=== PATIENT | male | born 1975 | race Caucasian/White ===

== ENCOUNTER 2018-10-23 21:17 | Emergency (ER) | payer MEDICAID, OTHER ==
[2018-10-23] MEDS ORDERED: LORazepam 2 MG/ML INJ IM PRN (21:37)
[2018-10-23] MEDS ORDERED: LORazepam 2 MG/ML INJ ONE (21:38)
[2018-10-23] MEDS ORDERED: LORazepam 2 MG/ML INJ IM ONE (22:17)
--- NOTE | 2018-10-23 22:23 | EDPHY ---
General - History Smoking Status: Current some day smoker Time Seen by Provider: 10/23/18 21:25 Narrative: CLINICAL IMPRESSION: Alcohol intoxication, Ground level fall ASSESSMENT/PLAN: 43 yo male presents to the ED in 4 point restraints after he was picked up by police outside of a bar in [place], became aggressive and had a ground level fall to the pavement allegedly striking the back of his head according to police. Patient is heavily intoxicated denying pain, headache, neck pain, back pain and any other injury. He is screaming profanity at staff members, acting aggressively, and despite 2 mg IM Ativan, ultimately required 10 mg IM Zyprexa to calm. He was initially refusing CT scan. Given his intoxicated state and reported head injury patient will require CT head and cervical spine before discharged on in [facility] hold which was placed by police. He was signed out to Dr. Fung at 12:00am. Pending CT results and re-evaluation. DIFFERENTIAL DX: Differential diagnosis for this patient includes but not limited to alcohol intoxication, alcohol abuse, alcohol withdrawal, other substance abuse or withdrawal, toxidrome or medication overdose, CVA, head trauma, hyponatremia, hypoglycemia or other electrolyte abnormality. ED PROCEDURES: See lab and/or imaging results below ED COURSE: Patient seen and assessed by myself at EMS arrival. He arrives in 4 point restraints, combative, yelling profanities at staff and police officers, [facility] placed by police officers. Patient is obviously intoxicated. Police report to me that they witness the patient falling from standing height backwards and struck his head on the pavement. Despite 2 mg IM Ativan, patient continues to be very aggressive, verbally abusing staff, and continuing to review CT scan. He was then given 10 mg IM Zyprexa. CHIEF COMPLAINT: Intoxicated, ground level fall HPI: 43-year-old male presents to the emergency department by EMS in 4 point restraints with police after apparently becoming combative and aggressive towards police outside of a bar in [place]. Patient is obviously intoxicated. According to police, patient was attempting to step up onto a curb when he fell backwards and struck his head on the pavement. There was no loss of consciousness. He has abrasions to the right knee. He is reporting no headache, neck pain or back pain. He is screaming profanities at staff and police, demanding to speak to his clinical data specialist, and reporting that we are kidnapping him. He denies doing any drugs but does admit to smoking marijuana. He does not believe he is intoxicated. PAST MEDICAL HISTORY: None reported See nurse/triage notes for additional history if applicable Pertinent Past Surgical History: None reported Family History: None reported Social History: Intoxicated REVIEW OF SYSTEMS: Unable to obtain due to acute alcohol intoxication. Patient is denying headache , neck pain and back pain. He is not a reliable historian at this point. PHYSICAL EXAM: General Appearance: [Alert, in 4 point restraints, agitated, yelling profanities at staff, refusing ED evaluation and scans, smells heavily of alcohol, HEENT: TMs are clear bilaterally no perforation or FB, no injection, no evidence of serous or mucopurulent otitis. Oropharynx clear is no erythema or exudates, no tonsillar hypertrophy or asymmetry. Dentition without abnormality. Eyes: PERRLA, no acute vision change, nystagmus, swelling, discharge, pain or photosensitivity. Conjunctiva pink, no pallor or injection Neck: Supple, nontender, no lymphadenopathy, no midline pain, FROM, no meningismus. Respiratory: There are no retractions, lungs are clear to auscultation. Cardiac: Regular rate and rhythm, no murmurs or gallops. Gastrointestinal: Abdomen is soft, nontender, bowel sounds normal, no masses/ hernia, no rigidity, guarding or focal peritoneal findings. Neurological: Alert and oriented x 3, CN 2-12 grossly intact, normal gait no ataxia, DTR's intact, normal sensation and strength Skin: Warm, dry, no rashes, no nodules on palpation. Musculoskeletal: Extremities are symmetrical, full range of motion, no tenderness, deformity, swelling, or erythema. Psychiatric: Patient is oriented X 3, there is no agitation. MEDICAL DECISION MAKING: Patient was seen independently. Secondary supervising physician at time of evaluation was Dr. Moya, Dr. Fung . Diagnosis: Alcohol intoxication, ground level fall. New, requires workup Summary: See Assessment and Plan for summary of ED visit Independent visualization of images, tracing, or specimens: Yes / No. Discussed patient with another provider: Dr. Fung, Dr. Moya Patient Progress: Stable at time of sign-out. (Rey Thompson) Medical Decision Makin: Patient signed over to me at midnight. I went saw the patient the patient was in 4 point restraints he is now be taking out of them as he is sedated. He came in acutely agitated and intoxicated. Still pending a CT scan of his head and neck after he fell earlier tonight. He is highly intoxicated with alcohol. He was acutely agitated received medications earlier this evening. Is noted she is tachycardic here. Plan will be for IV establishment IV fluid bolus, basic labs, alcohol level, CT scan head and neck. 0137: CT scan head without contrast and CT cervical spine without contrast faxed me by direct Radiology at 1:09 a.m. No acute intracranial abnormality no cranial or cervical fracture identified. 0300: Patient resting comfortably. Received IV fluids. His alcohol level was 251. CT scans negative. 0633: Is now sober. Ambulatory. Stable gait. Clinically sober and safe for discharge from the emergency room. Denies any complaints. States " I just drank too many drinks last night" (Pilo Fung) I did not see this patient while he was in the emergency department. However his care was discussed with the PA while the patient was in the department. I agree with treatment plan and management (Jose Cruz Moya) - Diagnostics Imaging Results: Imaging Impressions Cervical Spine CT 10/23/18 22:01 Impression: Negative noncontrast CT of the head with no intracranial posttraumatic sequela identified. CT Cervical Spine Without Contrast History: Trauma. Technique: Multislice helical CT through the cervical spine without contrast from the skull base to T1. Soft tissue and bone evaluation is performed. Sagittal and coronal reconstructions are obtained and reviewed. Dose reduction techniques were utilized. Images are somewhat compromised by patient motion artifact, however, they remain of adequate diagnostic quality. Findings: Cervical alignment is anatomic. No fracture or dislocation is identified. The relationship between skull base and C1 is normal. The C1-C2 articulation is normal. The odontoid process is normal. Mild multilevel degenerative changes are noted. The cervical thoracic junction is normal. Soft tissue window evaluation does not show evidence of epidural or prevertebral hematoma. Impression: Negative for fracture. The study was performed as an emergency on-call case and a preliminary interpretation conveyed to the Emergency Department. The final interpretation is concordant with the original communication. DR1. Head CT 10/23/18 22:01 Impression: Negative noncontrast CT of the head with no intracranial posttraumatic sequela identified. CT Cervical Spine Without Contrast History: Trauma. Technique: Multislice helical CT through the cervical spine without contrast from the skull base to T1. Soft tissue and bone evaluation is performed. Sagittal and coronal reconstructions are obtained and reviewed. Dose reduction techniques were utilized. Images are somewhat compromised by patient motion artifact, however, they remain of adequate diagnostic quality. Findings: Cervical alignment is anatomic. No fracture or dislocation is identified. The relationship between skull base and C1 is normal. The C1-C2 articulation is normal. The odontoid process is normal. Mild multilevel degenerative changes are noted. The cervical thoracic junction is normal. Soft tissue window evaluation does not show evidence of epidural or prevertebral hematoma. Impression: Negative for fracture. The study was performed as an emergency on-call case and a preliminary interpretation conveyed to the Emergency Department. The final interpretation is concordant with the original communication. DR1. - Objective Vital Signs: Initial Vital Signs Temperature (C) 37 C 10/23/18 21:26 Heart Rate 122 H 10/23/18 21:26 Respiratory Rate 20 10/23/18 21:26 Blood Pressure 150/99 H 10/23/18 21:26 O2 Sat (%) 93 10/23/18 21:26 O2 Delivery Mode Room Air O2 (L/minute) 2 Allergies/Adverse Reactions: No Known Allergies Allergy (Unverified 11/30/10 16:23) Home Medications: Medication Instructions Recorded NK [No Known Home Meds] 10/24/18 Laboratory Results: Laboratory Results 10/24/18 00:15 10/24/18 00:15 Medications Given: Discontinued Medications Chlordiazepoxide (Librium 25 Mg Prepack#6) 1 btl TAKEHOME EDNOW ONE Stop: 10/24/18 05:27 Last Admin: 10/24/18 05:51 Dose: 1 btl Sodium Chloride (Ns) 1,000 mls @ 0 mls/hr IV EDNOW ONE; Wide Open PRN Reason: Protocol Stop: 10/24/18 00:17 Last Admin: 10/24/18 00:26 Dose: 1,000 mls Sodium Chloride (Ns) 1,000 mls @ 0 mls/hr IV EDNOW ONE; Wide Open PRN Reason: Protocol Stop: 10/24/18 00:17 Last Admin: 10/24/18 00:27 Dose: 1,000 mls Lorazepam (Ativan Injection) 1 mg IM Q4HRS PRN PRN Reason: Agitation Stop: 04/21/19 21:36 Last Admin: 10/23/18 21:42 Dose: 1 mg Lorazepam (Ativan Injection) 1 mg IM EDNOW ONE Stop: 10/23/18 22:18 Last Admin: 10/23/18 22:26 Dose: 1 mg Olanzapine (Zyprexa Injection) 10 mg IM EDNOW ONE Stop: 10/23/18 22:51 Last Admin: 10/23/18 22:57 Dose: 10 mg Departure - Departure Disposition: Home, Routine, Self-Care Clinical Impression: Alcoholic intoxication Qualifiers: Complication of substance-induced condition: uncomplicated Qualified Code(s): F10.920 - Alcohol use, unspecified with intoxication, uncomplicated Condition: Good Instructions: Chlordiazepoxide/Clidinium (By mouth), Alcohol Intoxication (ED) , Abuse of Alcohol (ED) Additional Instructions: 1. Please stop drinking alcohol. Referrals: Patient,NotPresent [Unknown] - As per Instructions
[2018-10-23] MEDS ORDERED: OLANZapine 10 MG/2 ML VIAL IM ONE (22:50)
[2018-10-24] MEDS ORDERED: NS 1,000 ML IV ONE ×2 (00:16)
[2018-10-24 00:33] LABS: PLATELET COUNT 261 10^3/uL (150-400)
[2018-10-24] MEDS ORDERED: CHLORDIAZEPOXIDE 25MG PREPK#6 BTL TAKEHOME ONE (05:26)
[2018-10-24 06:02] VITALS: BP 114/79
== END 2018-10-24 06:40 | disposition home or self-care (01) ==
LOC: EDUNIT#
DX: F10.920 Alcohol use, unspecified with intoxication, uncomplicated (principal); S09.90XA Unspecified injury of head, initial encounter; W01.198A Fall on same level from slipping, tripping and stumbling with subsequent striking against other object, initial encounter; Y92.480 Sidewalk as the place of occurrence of the external cause
CPT/HCPCS: G0480; J2060